=== PATIENT | male | born 1960 ===

== ENCOUNTER 2025-02-12 12:05 | Day surgery (SDC) | payer OTHER ==
[~2025-02-12] VITALS: Ht 167.6 cm; Wt 77.8 kg
[~2025-02-12 12:05] MED LIST: Lactated Ringer's 1,000 ML IV ONE; propofoL 50 ML IV ONE
[2025-02-12] MEDS ORDERED: EZETIMIBE10 M6 (12:59)
[2025-02-12] MEDS ORDERED: HYDCHL25 (13:00)
[2025-02-12] MEDS ORDERED: Lactated Ringer's 1,000 ML IV ONE (13:16)
[2025-02-12 16:41] VITALS: BP 118/71
== END 2025-02-12 14:50 | disposition home or self-care (01) ==
LOC: ORSCSDS 12:05
PROVIDERS: Surgery
PROC: 0DBN8ZX Excision of Sigmoid Colon, Via Natural or Artificial Opening Endoscopic, Diagnostic (ICD-10-PCS; principal; 2025-02-12 14:30)
PROC: 0DBK8ZX Excision of Ascending Colon, Via Natural or Artificial Opening Endoscopic, Diagnostic (ICD-10-PCS; principal; 2025-02-12 14:30)
DX: Z12.11 Encounter for screening for malignant neoplasm of colon (principal); Z86.0101 Personal history of adenomatous and serrated colon polyps; D12.2 Benign neoplasm of ascending colon; K63.5 Polyp of colon; K57.30 Diverticulosis of large intestine without perforation or abscess without bleeding; K64.8 Other hemorrhoids; F17.210 Nicotine dependence, cigarettes, uncomplicated; Z79.899 Other long term (current) drug therapy
CPT/HCPCS: 88305; J2704; J7120